=== PATIENT | male | born 1985 | race Caucasian/White ===

== ENCOUNTER 2016-12-04 16:20 | Observation (INO) | payer OTHER ==
[2016-12-04] MEDS ORDERED: HYDROmorphONE/DILAUDID 1 MG/ML SYR IVP ONE ×2 (16:28→18:12)
[2016-12-04] MEDS ORDERED: NS 1,000 ML IV ONE (16:28)
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
[2016-12-04] MEDS ORDERED: IOPAMIDOL (ISOVUE-300) 100 ML BTL IV ONE (16:39)
[2016-12-04 16:41] LABS: % IMMATURE GRANULYOCYTES 2.5 % (0.0-1.1); ABSOLUTE IMMATURE GRANULOCYTES 0.25 10^3/uL (0.00-0.10); ADD DIFF? NO; ADD MORPH? NO; ADD SCAN? NO; ATYPICAL LYMPHOCYTE FLAG 0 (0-99); FRAGMENT RBC FLAG 0 (0-99); HEMATOCRIT 49.1 % (40.0-51.0); HEMOGLOBIN 16.3 g/dL (13.7-17.5); LEFT SHIFT FLG 40 (0-99); LIPEMIA HEMOLYSIS FLAG 80 (0-99); MEAN CELL HEMOGLOBIN 30.1 pg (27.9-34.1); MEAN CELL HEMOGLOBIN CONCENTR. 33.2 g/dL (32.4-36.7); MEAN CELL VOLUME 90.8 fL (81.5-99.8); MEAN PLATELET VOLUME 9.8 fL (8.7-11.7); PLATELET CLUMPS FLAG 10 (0-99); PLATELET COUNT 257 10^3/uL (150-400); RED BLOOD CELL COUNT 5.41 10^6/uL (4.40-6.38); RED CELL DISTRIBUTION WIDTH 13.2 % (11.5-15.2)
[2016-12-04 16:47] LABS: ANION GAP 12 mEq/L (8-16); CALCIUM 9.7 mg/dL (8.5-10.4); CARBON DIOXIDE 25 mEq/l (22-31); CHLORIDE 104 mEq/L (97-110); CREATININE 1.1 mg/dL (0.7-1.3); ETHANOL SERUM < 10 mg/dL (0-10); GLOMERULAR FILTRATION RATE > 60; GLUCOSE 76 mg/dL (70-100); POTASSIUM 3.9 mEq/L (3.5-5.2); SODIUM 141 mEq/L (134-144)
[2016-12-04 16:53] LABS: INR 0.96 (0.83-1.16); PROTIME(PATIENT) 12.7 SEC (12.0-15.0)
[2016-12-04 16:59] LABS: APTT 21.9 SEC (23.0-38.0)
[2016-12-04] MEDS ORDERED: HYDROmorphONE/DILAUDID 1 MG/ML SYR ONE (17:54)
[2016-12-04] MEDS ORDERED: KETOROLAC 30 MG/1 ML SDV ONE (17:55)
[2016-12-04] MEDS ORDERED: KETOROLAC 30 MG/1 ML SDV IVP ONE (18:11)
[2016-12-04] MEDS ORDERED: ONDANSETRON 4 MG/2 ML VIAL ONE (19:22)
[2016-12-04] MEDS ORDERED: ONDANSETRON 4 MG/2 ML VIAL IVP PRN (19:23)
[2016-12-04] MEDS ORDERED: ONDANSETRON 4 MG/2 ML VIAL IVP ONE (19:28)
[2016-12-04] MEDS ORDERED: LR 1,000 ML IV SCH (19:30)
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
[2016-12-04] MEDS: ACETAMINOPHEN 500 MG TAB PO SCH (22:11)
[2016-12-04] MEDS: BACITRACIN ZINC 14.2 GM OINTTUBE TP SCH (22:12)
[2016-12-04] MEDS: HYDROmorphONE/DILAUDID 1 MG/ML SYR IVP PRN (22:58)
[2016-12-04] MEDS: KETOROLAC 15 MG/1 ML SDV IVP SCH (23:25)
[2016-12-05] MEDS: HYDROmorphONE/DILAUDID 1 MG/ML SYR IVP PRN ×6 (00:59→20:11)
[2016-12-05 04:48] LABS: % IMMATURE GRANULYOCYTES 0.4 % (0.0-1.1); ABSOLUTE IMMATURE GRANULOCYTES 0.03 10^3/uL (0.00-0.10); ADD DIFF? NO; ADD MORPH? NO; ADD SCAN? NO; ATYPICAL LYMPHOCYTE FLAG 0 (0-99); FRAGMENT RBC FLAG 0 (0-99); LEFT SHIFT FLG 40 (0-99); LIPEMIA HEMOLYSIS FLAG 90 (0-99); MEAN CELL HEMOGLOBIN 31.2 pg (27.9-34.1); MEAN CELL HEMOGLOBIN CONCENTR. 34.2 g/dL (32.4-36.7); MEAN CELL VOLUME 91.1 fL (81.5-99.8); MEAN PLATELET VOLUME 9.6 fL (8.7-11.7); PLATELET CLUMPS FLAG 0 (0-99); PLATELET COUNT 177 10^3/uL (150-400); RED BLOOD CELL COUNT 4.17 10^6/uL (4.40-6.38); RED CELL DISTRIBUTION WIDTH 13.4 % (11.5-15.2)
[2016-12-05 05:04] LABS: ANION GAP 7 mEq/L (8-16); CALCIUM 8.4 mg/dL (8.5-10.4); CARBON DIOXIDE 23 mEq/l (22-31); CHLORIDE 109 mEq/L (97-110); CREATININE 0.9 mg/dL (0.7-1.3); GLOMERULAR FILTRATION RATE > 60; GLUCOSE 100 mg/dL (70-100); POTASSIUM 3.8 mEq/L (3.5-5.2); SODIUM 139 mEq/L (134-144)
[2016-12-05] MEDS: ACETAMINOPHEN 500 MG TAB PO SCH ×3 (05:12→20:10)
[2016-12-05] MEDS: KETOROLAC 15 MG/1 ML SDV IVP SCH ×3 (05:12→17:45)
[2016-12-05] MEDS: BACITRACIN ZINC 14.2 GM OINTTUBE TP SCH ×2 (09:10→20:12)
--- NOTE | 2016-12-05 13:17 | SOAPPROG ---
Downtime Inpatient MD Late Entry SOAP Note: Patient seen and examined. There is a labeling issue with his spine. I would call this an L2 compression deformity. He need to be braced and fu with spine surgeon about 3-4 weeks after discharge. Get some baseline lateral xray of lumbar spine UPRIGHT in the brace prior to discharge.
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
[2016-12-05] MEDS ORDERED: ZOLPIDEM TARTRATE 5 MG TAB PO ONE (23:45)
[2016-12-06] MEDS: KETOROLAC 15 MG/1 ML SDV IVP SCH ×3 (00:08→12:01)
[2016-12-06] MEDS: OXYCODONE/APAP 5/325 TAB PO PRN ×4 (00:08→18:12)
[2016-12-06] MEDS: ACETAMINOPHEN 500 MG TAB PO SCH ×2 (05:21→14:36)
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
[2016-12-06 08:22] LABS: COLOR YELLOW; LEUKOCYTE ESTERASE,URINE NEGATIVE (NEGATIVE); NITRITE,URINE NEGATIVE (NEGATIVE)
[2016-12-06] MEDS ORDERED: ONDANSETRON DISINTEGRATING 4 MG TAB ONE (08:32)
[2016-12-06] MEDS ORDERED: SENNOSIDES/DOCUSATE SODIUM TAB PO SCH (09:00)
[2016-12-06] MEDS ORDERED: MAGNESIUM HYDROXIDE 30 ML UDCUP PO PRN (09:00)
[2016-12-06] MEDS ORDERED: LACTULOSE 20 GM/30 ML UDCUP PO PRN (09:00)
[2016-12-06] MEDS ORDERED: BISACODYL 10 MG SUPP PR PRN (09:00)
[2016-12-06] MEDS ORDERED: POLYETHYLENE GLYCOL 3350 17 GM PKT PO PRN (09:00)
[2016-12-06] MEDS: HYDROmorphONE/DILAUDID 1 MG/ML SYR IVP PRN (09:57)
[2016-12-06] MEDS: BACITRACIN ZINC 14.2 GM OINTTUBE TP SCH (11:15)
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
[2016-12-06 12:07] VITALS: BP 129/87; PULSE 58; RESP 20; TEMP 98; O2SAT 94
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
== END 2016-12-06 18:51 | disposition home or self-care (01) ==
LOC: UNDOADMOB 19:23 → F3N 21:25
PROVIDERS: ADMIT Surgery; ATTEND Surgery
DX: S32.010A Wedge compression fracture of first lumbar vertebra, initial encounter for closed fracture (principal); S92.144A Nondisplaced dome fracture of right talus, initial encounter for closed fracture; S30.0XXA Contusion of lower back and pelvis, initial encounter; V27.0XXA Motorcycle driver injured in collision with fixed or stationary object in nontraffic accident, initial encounter; Y92.410 Unspecified street and highway as the place of occurrence of the external cause; R10.11 Right upper quadrant pain; M25.531 Pain in right wrist; M25.532 Pain in left wrist; M25.541 Pain in joints of right hand; M25.542 Pain in joints of left hand; F17.210 Nicotine dependence, cigarettes, uncomplicated; K21.9 Gastro-esophageal reflux disease without esophagitis
CPT/HCPCS: 70450; 71260; 72100; 72125; 72129; 72132; 72141; 72148; 73110; 73130; 73610; 73700; 74177; 92507; 92523; 97116; 97161; 97166; 97535; G0378; 82947-QW; 96374; G0480; J1170; J1885; J2405; L4386; Q9967